=== PATIENT | male | born 1985 | race American Indian/Alaskan Native ===

== ENCOUNTER 2016-12-30 17:32 | Emergency (ER) | payer SELFPAY ==
[2016-12-30 18:41] VITALS: BP 138/92
--- NOTE | 2016-12-30 20:41 | XRay Report ---
FINAL REPORT EXAM: XR HAND 3+V RT HISTORY: nail punctured Injury TECHNIQUE: 2 views right hand PRIORS: None. FINDINGS: No fracture is identified. No dislocation seen. Joint spaces are within normal limits. No erosive bony change identified. Carpal bones maintain normal alignment. Distal radius and ulna are intact. No radiopaque foreign bodies seen. IMPRESSION: No evidence for fracture or radiopaque foreign body
[2016-12-30] MEDS ORDERED: BOOSTRIX IM ONE (20:52)
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
== END 2016-12-30 21:05 | disposition home or self-care (01) ==
LOC: ED 17:32
DX: S61.401A Unspecified open wound of right hand, initial encounter (principal); F17.210 Nicotine dependence, cigarettes, uncomplicated; W45.0XXA Nail entering through skin, initial encounter; Y93.89 Activity, other specified; Y92.89 Other specified places as the place of occurrence of the external cause; Y99.8 Other external cause status
CPT/HCPCS: 90471; 90715; 96372; 99283

== ENCOUNTER 2018-04-29 02:21 | Emergency (ER) | payer SELFPAY ==
[2018-04-29] MEDS ORDERED: IBUPROFEN PO ONE (04:14)
[2018-04-29] MEDS ORDERED: BOOSTRIX IM ONE (04:16)
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
[2018-04-29 06:20] VITALS: BP 135/86
== END 2018-04-29 06:19 | disposition home or self-care (01) ==
LOC: ED 02:21
DX: S41.012A Laceration without foreign body of left shoulder, initial encounter (principal); F17.200 Nicotine dependence, unspecified, uncomplicated; X99.8XXA Assault by other sharp object, initial encounter; Y93.89 Activity, other specified; Y92.89 Other specified places as the place of occurrence of the external cause; Y99.8 Other external cause status
CPT/HCPCS: 90471; 90715

== ENCOUNTER 2018-10-28 18:23 | Emergency (ER) | payer SELFPAY | END 2018-10-28 19:08 | disposition left against medical advice (07) | LOC: ED 18:23 | DX: R05 Cough (principal); Z53.21 Procedure and treatment not carried out due to patient leaving prior to being seen by health care provider ==